=== PATIENT | female | born 1945 | race Caucasian/White ===

== ENCOUNTER 2017-05-16 06:26 | Day surgery (SDC) | payer OTHER, MEDICARE ==
--- NOTE | ~2017-05-16 | EGD ---
EGD REPORT [facility] [address] [address] NAME: OLVIN AGUDELO : [birth year] STATUS : REG [facility]#: [id number] AGE: 71 ADM/REG DATE : 05/16/17 MR#: [id number] REPORT SERV DATE: 05/16/17 DICTATED BY: DATE: REPORT STATUS : Draft TRANSCRIBED BY: [employer] DATE: 05/16/17 [facility] Patient Name: Olvin Agudelo Date of : 1945 Attending MD: KAMINI MAIER MD Procedure Date No Time: 05/16/2017 Procedure: Upper GI endoscopy Indications: Esophageal reflux symptoms that persist despite appropriate therapy Referring MD: KALA SMITH MD Medicines: Monitored Anesthesia Care Complications: No immediate complications. Procedure: Pre-Anesthesia Assessment: - ASA Grade Assessment: II - A patient with mild systemic disease. After obtaining informed consent, the endoscope was passed under direct vision. Throughout the procedure, the patient's blood pressure, pulse, and oxygen saturations were monitored continuously. The GIF H190 [id number] was introduced through the mouth, and advanced to the third part of duodenum. The upper GI endoscopy was accomplished without difficulty. The patient tolerated the procedure well. Findings: A 1 cm hiatus hernia was present. No other significant abnormalities were identified in a careful examination of the esophagus. There is no endoscopic evidence of Rockwell's esophagus, areas of erosion, ulcerations or varices at the esophageal anastomosis. The entire examined stomach was normal. There is no endoscopic evidence of mucosal abnormalities, ulceration or varices in the entire examined stomach. The examined duodenum was normal. There is no endoscopic evidence of inflammation, mucosal abnormalities or ulceration in the entire examined duodenum. The cardia and gastric fundus were normal on retroflexion. Impression: - Hiatus hernia. - Normal stomach. - Normal examined duodenum. Recommendation: - Patient has a contact number available for emergencies. The signs and symptoms of potential delayed complications were discussed with the patient. Return to EGD REPORT [place] [id number] [facility] [place]. [address] NAME: OLVIN AGUDELO : [birth year] STATUS : REG [facility]#: [id number] AGE: 71 ADM/REG DATE : 05/16/17 MR#: [id number] REPORT SERV DATE: 05/16/17 DICTATED BY: DATE: REPORT STATUS : Draft TRANSCRIBED BY: [employer] DATE: 05/16/17 normal activities tomorrow. Written discharge instructions were provided to the patient. - Regular diet. - Discharge patient to home. - Continue present medications. Procedure Code(s): --- Professional --- 25719, Esophagogastroduodenoscopy, flexible, transoral; diagnostic, including collection of specimen(s) by brushing or washing, when performed (separate procedure) Diagnosis Code(s): --- Professional --- K44.9, Diaphragmatic hernia without obstruction or gangrene K21.9, Gastro-esophageal reflux disease without esophagitis CPT copyright 2013 [employer]. All rights reserved. The codes documented in this report are preliminary and upon talent management specialist review may be revised to meet current compliance requirements. KAMINI MAIER MD 05/16/2017 7:54 AM This report has been signed electronically. Number of Addenda: 0 Note Initiated On: 05/16/2017 7:43 AM Scope Withdrawal Time 0 hours 0 minutes 0 seconds [id number] [place] [address]
--- NOTE | ~2017-05-16 | EGD ---
EGD REPORT [facility] [address] [address] NAME: OLVIN AGUDELO : [birth year] STATUS : REG [facility] PAT#: [id number] AGE: 71 ADM/REG DATE : 05/16/17 MR#: [id number] REPORT SERV DATE: 05/16/17 DICTATED BY: DATE: REPORT STATUS : Draft TRANSCRIBED BY: [employer] DATE: 05/16/17 Endoscopy Center Patient Name: Olvin Agudelo Date of : 1945 Attending MD: KAMINI MAIER MD Procedure Date No Time: 05/16/2017 Procedure: Colonoscopy Indications: High risk colon cancer surveillance: Personal history of colon cancer Referring MD: KALA SMITH MD Medicines: Monitored Anesthesia Care Complications: No immediate complications. Procedure: Pre-Anesthesia Assessment: - ASA Grade Assessment: II - A patient with mild systemic disease. After I obtained informed consent, the scope was passed under direct vision. Throughout the procedure, the patient's blood pressure, pulse, and oxygen saturations were monitored continuously. The PCF [id number] was introduced through the anus and advanced to the terminal ileum. The colonoscopy was performed without difficulty. The patient tolerated the procedure well. The quality of the bowel preparation was excellent. Findings: The perianal and digital rectal examinations were normal. There was evidence of a prior end-to-end ileo-colonic anastomosis in the cecum. This was patent. This was characterized by healthy appearing mucosa. A sessile polyp was found at the hepatic flexure. The polyp was diminutive in size. The polyp was removed with a cold biopsy forceps. Resection and retrieval were complete. No other significant abnormalities were identified in a careful examination of the remainder of the colon. There is no endoscopic evidence of diverticula, inflammation, ulcerations or angioectasia in the entire colon. No additional abnormalities were found on retroflexion. Impression: - Patent end-to-end ileo-colonic anastomosis. - One diminutive polyp at the hepatic flexure. Resected and retrieved. Recommendation: - Patient has a contact number available for emergencies. The signs and symptoms of potential delayed complications were discussed with the patient. Return to EGD REPORT [address] [place]. [address] NAME: OLVIN AGUDELO : [birth year] STATUS : REG [facility]#: [id number] AGE: 71 ADM/REG DATE : 05/16/17 MR#: [id number] REPORT SERV DATE: 05/16/17 DICTATED BY: DATE: REPORT STATUS : Draft TRANSCRIBED BY: [employer] DATE: 05/16/17 normal activities tomorrow. Written discharge instructions were provided to the patient. - Regular diet. - Discharge patient to home. - Continue present medications. - Await pathology results. - Repeat colonoscopy in 5 years for surveillance. Procedure Code(s): --- Professional --- 05604, Colonoscopy, flexible, proximal to splenic flexure; with biopsy, single or multiple Diagnosis Code(s): --- Professional --- Z98.0, Intestinal bypass and anastomosis status D12.3, Benign neoplasm of transverse colon Z85.038, Personal history of other malignant neoplasm of large intestine CPT copyright 2013 [employer]. All rights reserved. The codes documented in this report are preliminary and upon sales representative public utilities review may be revised to meet current compliance requirements. KAMINI MAIER MD 05/16/2017 8:08 AM This report has been signed electronically. Number of Addenda: 0 Note Initiated On: 05/16/2017 7:44 AM Scope Withdrawal Time 0 hours 7 minutes 55 seconds [id number] [id number]
[~2017-05-16 06:26] MED LIST: ASA5GR PO; CENTRUM PO; CLARINEX5 MG PO; ESTRACE VAGIN42.5 GM V; FINACEA; FISH-EPA1000 MG PO; LIPITOR10 PO; MEDS; METROGEL; PEP20 PO; QNASL8.7 GM NAS; SYN88 PO; T PO; T3 PO
== END 2017-05-16 23:59 | disposition home health service (06) ==
LOC: DMU 06:26
PROVIDERS: Internal Medicine Gastroenterology
PROC: 0DBK8ZX Excision of Ascending Colon, Via Natural or Artificial Opening Endoscopic, Diagnostic (ICD-10-PCS; principal; 2017-05-16 08:00)
PROC: 0DJ08ZZ Inspection of Upper Intestinal Tract, Via Natural or Artificial Opening Endoscopic (ICD-10-PCS; 2017-05-16 08:00)
DX: Z12.11 Encounter for screening for malignant neoplasm of colon (principal); D12.3 Benign neoplasm of transverse colon; K21.9 Gastro-esophageal reflux disease without esophagitis; K44.9 Diaphragmatic hernia without obstruction or gangrene; M19.90 Unspecified osteoarthritis, unspecified site; E03.9 Hypothyroidism, unspecified; Z98.0 Intestinal bypass and anastomosis status; Z85.038 Personal history of other malignant neoplasm of large intestine; Z87.891 Personal history of nicotine dependence; Z79.899 Other long term (current) drug therapy; Z90.49 Acquired absence of other specified parts of digestive tract; Z90.710 Acquired absence of both cervix and uterus; Z98.890 Other specified postprocedural states
CPT/HCPCS: 88305